=== PATIENT | female | born 1970 | race Caucasian/White ===

== ENCOUNTER 2021-02-06 15:42 | Emergency (ER) | payer OTHER ==
[2021-02-06 20:58] LABS: CORONAVIRUS 2019 SARS-COV-2 NEGATIVE (NEGATIVE); INFLUENZA A NAA NEGATIVE (NEGATIVE)
== END 2021-02-07 04:00 ==
LOC: FER 15:42
PROVIDERS: Nurse Practitioner Family
DX: S61.512A Laceration without foreign body of left wrist, initial encounter (principal); I10 Essential (primary) hypertension; J44.9 Chronic obstructive pulmonary disease, unspecified; Z23 Encounter for immunization; W26.8XXA Contact with other sharp object(s), not elsewhere classified, initial encounter; Z20.822 Contact with and (suspected) exposure to COVID-19
CPT/HCPCS: 90471; 90715; U0002

== ENCOUNTER 2022-03-04 22:24 | Emergency (ER) | payer OTHER ==
[2022-03-04 22:57] LABS: BASOPHIL 0.3 % (0-2); EOSINOPHIL 1.3 % (0-5); HCT 44.1 % (37.0-47.0); HGB 15.1 g/dl (12.5-16.0); LYMPHOCYTE 16.5 % (15-48); MCH 32.7 pg (25.0-31.0); MCHC 34.2 g/dL (32.0-36.0); MCV 95.5 fL (78.0-100.0); MPV 10.6 fL (6.0-9.5); NEUTROPHIL 76.4 % (41-80); NRBC 0; PLT 296 K/uL (150-400); RBC 4.62 M/uL (4.20-5.40); RDW 12.7 % (11.5-14.0)
[2022-03-04 23:18] LABS: ALBUMIN 3.7 g/dL (3.4-5.0); BILIRUBIN - TOTAL 0.3 mg/dL (0.2-1.0); BUN/CREAT RATIO (CALC) 20.9 RATIO; CREATININE 0.91 mg/dL (0.51-0.95); GLOBULIN (CALCULATION) 3.9 g/dL; POTASSIUM 3.9 mmol/L (3.5-5.1); TOTAL PROTEIN 7.6 g/dL (6.4-8.2)
[2022-03-05] MEDS ORDERED: AMOX TR-K CLV1 EAC4 PO (00:41)
[2022-03-05] MEDS ORDERED: AZITHROMYCIN250 MG PO (00:41)
[2022-03-05] MEDS ORDERED: PREDNISONE 20MG20 MG PO (00:41)
[2022-03-05] MEDS ORDERED: PHENERGAN25 M1 PO (01:21)
[2022-03-05 01:29] LABS: CORONAVIRUS 2019 SARS-COV-2 NEGATIVE (NEGATIVE); INFLUENZA A NAA NEGATIVE (NEGATIVE)
== END 2022-03-05 01:00 | disposition home or self-care (01) ==
LOC: FER 22:24
PROVIDERS: Internal Medicine
DX: J44.0 Chronic obstructive pulmonary disease with (acute) lower respiratory infection (principal); J18.9 Pneumonia, unspecified organism; F17.210 Nicotine dependence, cigarettes, uncomplicated; Z86.73 Personal history of transient ischemic attack (TIA), and cerebral infarction without residual deficits; Z88.8 Allergy status to other drugs, medicaments and biological substances; Z91.013 Allergy to seafood; Z20.822 Contact with and (suspected) exposure to COVID-19
CPT/HCPCS: 36415; 71250; 80053; 83690; 83880; 84145; 84484; 85025; 93005; J0696; J2405; J2930; U0002

== ENCOUNTER 2022-03-11 19:44 | Emergency (ER) | payer OTHER ==
[~2022-03-11 19:44] MED LIST: AMOX TR-K CLV1 EAC4 PO; AZITHROMYCIN250 MG PO; PHENERGAN25 M1 PO; PREDNISONE 20MG20 MG PO
[2022-03-11 20:13] LABS: BASOPHIL 0.3 % (0-2); EOSINOPHIL 2.4 % (0-5); HCT 44.5 % (37.0-47.0); HGB 15.1 g/dl (12.5-16.0); LYMPHOCYTE 28.1 % (15-48); MCH 32.3 pg (25.0-31.0); MCHC 33.9 g/dL (32.0-36.0); MCV 95.3 fL (78.0-100.0); MPV 10.3 fL (6.0-9.5); NEUTROPHIL 62.8 % (41-80); NRBC 0; PLT 279 K/uL (150-400); RBC 4.67 M/uL (4.20-5.40); RDW 12.9 % (11.5-14.0); WBC 9.4 K/uL (4.0-10.5)
[2022-03-11 20:23] LABS: INR 0.98 (0.9-1.2); PROTHROMBIN TIME 12.4 SECONDS (11.8-13.4); PTT 27.9 SECONDS (24.4-34.7)
[2022-03-11] MEDS ORDERED: FIORICET1 EACH PO (23:24)
== END 2022-03-11 23:38 | disposition home or self-care (01) ==
LOC: FER 19:44
PROVIDERS: Emergency Medicine
DX: R51.9 Headache, unspecified (principal); I10 Essential (primary) hypertension; F17.210 Nicotine dependence, cigarettes, uncomplicated
CPT/HCPCS: 36415; 70450; 85025; 85610; 85730; J1170; J1200; J2765; J7030

== ENCOUNTER 2022-07-30 08:38 | Emergency (ER) | payer OTHER ==
[~2022-07-30 08:38] MED LIST changes: +FIORICET1 EACH PO
[2022-07-30 09:42] LABS: BASOPHIL 0.3 % (0-2); EOSINOPHIL 0.9 % (0-5); HCT 42.6 % (37.0-47.0); HGB 14.2 g/dl (12.5-16.0); LYMPHOCYTE 19.2 % (15-48); MCH 31.9 pg (25.0-31.0); MCHC 33.3 g/dL (32.0-36.0); MCV 95.7 fL (78.0-100.0); MONOCYTE 4.6 % (0-12); MPV 10.4 fL (6.0-9.5); NEUTROPHIL 74.5 % (41-80); NRBC 0; PLT 282 K/uL (150-400); RBC 4.45 M/uL (4.20-5.40); RDW 12.2 % (11.5-14.0); WBC 11.2 K/uL (4.0-10.5)
[2022-07-30 09:54] LABS: INR 0.98 (0.9-1.2); PROTHROMBIN TIME 12.7 SECONDS (11.9-13.9); PTT 29.1 SECONDS (24.9-34.6)
[2022-07-30 10:05] LABS: BILIRUBIN NEGATIVE (NEGATIVE); BLOOD NEGATIVE Ery/uL (NEGATIVE); CLARITY CLEAR (CLEAR); COLOR YELLOW (YELLOW); GLUCOSE (U) NORMAL (NORMAL); LEUKOCYTES NEGATIVE Leu/uL (NEGATIVE); NITRITE POSITIVE (NEGATIVE); PROTEIN NEGATIVE (NEGATIVE); SPECIFIC GRAVITY 1.015 (1.001-1.030)
[2022-07-30 10:06] LABS: ALBUMIN 3.4 g/dL (3.4-5.0); BILIRUBIN - TOTAL 0.4 mg/dL (0.2-1.0); BUN/CREAT RATIO (CALC) 19.3 RATIO; CREATININE 0.88 mg/dL (0.51-0.95); GLOBULIN (CALCULATION) 3.7 g/dL; POTASSIUM 3.7 mmol/L (3.5-5.1); TOTAL PROTEIN 7.1 g/dL (6.4-8.2)
[2022-07-30 10:12] LABS: BACTERIA 4+
== END 2022-07-30 11:00 | disposition other institution (70) ==
LOC: FER 08:38
PROVIDERS: Emergency Medicine
DX: I63.9 Cerebral infarction, unspecified (principal); R29.704 NIHSS score 4
CPT/HCPCS: 36415; 70450; 80053; 81001; 85025; 85610; 85730